=== PATIENT | female | born 1965 | race Two or more races ===

== ENCOUNTER 2017-12-20 14:47 | Inpatient (IN) | payer OTHER ==
[2017-12-20] MEDS ORDERED: SODIUM CHLORIDE 1,000 ML IV STA ×2 (16:08→18:08)
[2017-12-20] MEDS ORDERED: ACETAMINOPHEN 1000 MG/100 ML VIAL (NON FORMULARY) IVPB ONE (16:22)
--- NOTE | 2017-12-20 16:27 | PDOC ---
Attending Attestation - HPI HPI: 12/20/17 17:39 The patient is a 52 year old female with past medical history of anemia and asthma presents to the emergency department with flank pain. The patient reports an acute onset of L and R flank region pain that presented last night. The patient reports associated concern a headache, prior to going to bed reports taking tylenol, with relief reported and foul smell noticed while voiding. Denies fever, chills or a cough. Denies chest pain or shortness of breath. Denies dysuria, hematuria, frequency or urgency to urinate. Denies vertigo or dizziness. Denies numbness, tingling or loss of sensation. Denies diarrhea or constipation. Denies nausea or vomiting. Denies prior similar headache. Allergies: NKDA Social history: None reported Surgical history: None reported PCP: Shazia Frazier - Medical Decision Making 12/20/17 17:39 Documentation prepared by Sabine Carlisle, acting as medical technologist chief for Elsie Rea MD. <Sabine Carlisle - Last Filed: 12/20/17 17:38> - Resident Resident Name: Jesús Hopkins - ED Attending Attestation I have performed the following: I have examined & evaluated the patient, The case was reviewed & discussed with the resident, I agree w/resident's findings & plan, Exceptions are as noted - Physicial Exam PE: GENERAL: Awake, alert, and fully oriented, in no acute distress. Appears uncomfortable. HEAD: No signs of trauma EYES: PERRLA, EOMI, sclera anicteric, conjunctiva clear ENT: Auricles normal inspection, hearing grossly normal, nares patent, oropharynx clear without exudates. Dry mucosa NECK: Normal ROM, supple, no lymphadenopathy, JVD, or masses LUNGS: Breath sounds equal, clear to auscultation bilaterally. No wheezes, and no crackles HEART: Regular rate and rhythm, normal S1 and S2, no murmurs, rubs or gallops ABDOMEN: Soft, nontender, normoactive bowel sounds. No guarding, no rebound. No masses. +L CVAT. EXTREMITIES: Normal range of motion, no edema. No clubbing or cyanosis. No cords, erythema, or tenderness NEUROLOGICAL: Cranial nerves II through XII grossly intact. Normal speech, normal gait. Motor and sensation intact. SKIN: Warm, Dry, normal turgor, no rashes or lesions noted. - Medical Decision Making Pt with fever, L CVAT. Suspected pyelonephritis vs infected stone. Will obtain labs, UA, and CT. <Elsie Rea - Last Filed: 12/23/17 08:16>
[2017-12-20 16:49] LABS: URINE APPEARANCE SLCLOUDY; URINE BILIRUBIN NEGATIVE (<2.0 mg/dL); URINE COLOR YELLOW; URINE GLUCOSE (UA) NEGATIVE (NEGATIVE); URINE KETONE NEGATIVE (NEGATIVE); URINE NITRITE NEGATIVE (NEGATIVE); URINE PROTEIN NEGATIVE (NEGATIVE); URINE UROBILINOGEN 4.0 E.U/dl mg/dL (0.2-1.0)
[2017-12-20 16:50] LABS: URINE LEUK ESTERASE 2+ (NEGATIVE)
[2017-12-20 16:53] LABS: EPI CELLS RARE /HPF (FEW); URINE BACTERIA RARE /hpf (NONE SEEN); URINE MUCUS RARE
[2017-12-20 17:07] LABS: HEMATOCRIT 37.1 % (32.4-45.2); HEMOGLOBIN 12.5 GM/dL (10.7-15.3); MCH 29.7 pg (25.7-33.7); MCHC 33.7 g/dl (32.0-36.0); MEAN CELL VOLUME 88.2 fl (80-96); MEAN PLT VOLUME 8.4 fl (7.5-11.1); PLATELET COUNT 252 K/MM3 (134-434); RBC 4.21 M/mm3 (3.60-5.2); RDW 14.5 % (11.6-15.6); WHITE BLOOD COUNT 12.2 K/mm3 (4.0-10.0)
[2017-12-20] MEDS ORDERED: ACETAMINOPHEN INJECTION 100 ML IVPB ONE (17:09)
[2017-12-20 17:14] LABS: INR 1.3 (0.82-1.09); PROTHROMBIN TIME (PATIENT) 14.7 SEC (9.7-13.0)
[2017-12-20 17:25] LABS: ALBUMIN 3.9 g/dl (3.4-5.0); ALK PHOS 111 U/L (45-117); ANION GAP 9 (8-16); BILIRUBIN,TOTAL 0.6 mg/dL (0.2-1.0); BLOOD UREA NITROGEN 6 mg/dL (7-18); CALCIUM 8.5 mg/dL (8.5-10.1); CHLORIDE 101 mmol/L (98-107); CO2 28 mmol/L (21-32); CREATININE 0.7 mg/dL (0.55-1.02); GLUCOSE,RANDOM 85 mg/dL (74-106); POTASSIUM 3.2 mmol/L (3.5-5.1); SGOT/AST 19 U/L (15-37); SGPT/ALT 25 U/L (12-78); SODIUM 138 mmol/L (136-145); TOT PROT 8.2 g/dl (6.4-8.2)
--- NOTE | 2017-12-20 17:26 | PDOC ---
History of Present Illness - General Stated Complaint: HTN Time Seen by Provider: 12/20/17 15:40 History Source: Patient Exam Limitations: No Limitations - History of Present Illness Initial Comments: 12/20/17 16:31 Patient is a 52F with history of HTN here today complaining of left flank pain and headache that started last night. She is also complaining of associated foul smelling urine, fever, headache and bodyaches. She denies chest pain, shortness of breath, and leg swelling. She denies focal weakness, saddle anesthesia, IVDA. She describes a headache that started yesterday. Denies chills , leg swelling. Past History - Past Medical History Allergies/Adverse Reactions: Allergies Allergy/AdvReac Type Severity Reaction Status Date / Time No Known Drug Allergies Allergy Verified 11/26/15 06:57 Home Medications: Ambulatory Orders Aspirin [ASA -] 81 mg PO DAILY 11/22/15 Losartan Potassium 100 mg PO DAILY 11/22/15 Turpin-3 Fatty Acids [Turpin-3] 1,000 mg PO DAILY 12/21/17 Omeprazole 40 mg PO DAILY 12/21/17 Anemia: Yes Asthma: Yes Cardiac Disorders: Yes CVA: No COPD: No DVT: No Dementia: No Diabetes: No Dialysis: No GI Disorders: No Disorders: No HTN: No Hypercholesterolemia: No Kidney Stones: No Liver Disease: No Psychiatric Problems: No Seizures: No Thyroid Disease: No Lung CA: No - Surgical History Abdominal Surgery: No Appendectomy: No Cardiac Surgery: No Cholecystectomy: No Gastric Stapling: No GI Surgery: No Lung Surgery: No Neurologic Surgery: No - Immunization History Td Vaccination: Yes TDAP Vaccination: Yes Immunization Up to Date: Yes - Suicide/Smoking/Psychosocial Hx Smoking History: Never smoked Have you smoked in the past 12 months: No Number of Cigarettes Smoked Daily: 0 Information on smoking cessation initiated: No Hx Alcohol Use: No Drug/Substance Use Hx: No Substance Use Type: None Review of Systems - Review of Systems Comments:: 12/20/17 17:26 GENERAL/CONSTITUTIONAL: No fever or chills. No weakness. HEAD, EYES, EARS, NOSE AND THROAT: No change in vision. No sore throat. CARDIOVASCULAR: No chest pain or shortness of breath RESPIRATORY: No cough, wheezing, or hemoptysis. GASTROINTESTINAL: No nausea, vomiting, diarrhea or constipation. GENITOURINARY: No dysuria, frequency, +foul smell MUSCULOSKELETAL: No joint or muscle swelling or pain. No neck or back pain. SKIN: No rash NEUROLOGIC: No headache, vertigo, loss of consciousness, or change in strength/ sensation. ENDOCRINE: No increased thirst. No abnormal weight change HEMATOLOGIC/LYMPHATIC: No anemia, easy bleeding, or history of blood clots. ALLERGIC/IMMUNOLOGIC: No hives or skin allergy. *Physical Exam - Vital Signs Last Vital Signs Temp Pulse Resp BP Pulse Ox 98.4 F 113 H 20 153/90 95 12/20/17 15:10 12/20/17 15:10 12/20/17 15:10 12/20/17 15:10 12/20/17 15:10 - Physical Exam Comments: 12/20/17 17:26 GENERAL: Awake, alert, and fully oriented, in no acute distress HEAD: No signs of trauma, normocephalic, atraumatic EYES: PERRLA, EOMI, sclera anicteric, conjunctiva clear ENT: Auricles normal inspection, hearing grossly normal, nares patent, oropharynx clear without exudates. Moist mucosa NECK: Normal ROM, supple, no lymphadenopathy, JVD, or masses LUNGS: No distress, speaks full sentences, clear to auscultation bilaterally HEART: Regular rate and rhythm, normal S1 and S2, no murmurs, rubs or gallops, peripheral pulses normal and equal bilaterally. ABDOMEN: L sided CVA tenderness, otherwise non-tender. EXTREMITIES: Normal inspection, Normal range of motion, no edema. No clubbing or cyanosis. NEUROLOGICAL: Cranial nerves II through XII grossly intact. Normal speech, no focal sensorimotor deficits SKIN: Warm, Dry, normal turgor, no rashes or lesions noted. ED Treatment Course - LABORATORY CBC & Chemistry Diagram: 12/20/17 16:10 12/20/17 16:10 - RADIOLOGY Radiology Studies Ordered: Category Date Time Status SPIRAL- RENAL-STONE CT [CT] Stat CT Scan 12/20/17 16:13 Ordered CXRPORT [CHEST X-RAY PORTABLE*] [RAD] Stat Radiology 12/20/17 16:04 Ordered Medical Decision Making - Medical Decision Making 12/20/17 17:27 Patient is 52F with history of HTN here today with foul smelling urine, back pain. Vital signs notable for tachycardia and fever. Patient is septic, source is likely UTI. Will evaluate with septic workup and spiral CT. Will treat with fluids and tylenol. 12/20/17 17:28 Laboratory Tests 12/20/17 12/20/17 16:10 16:10 WBC 12.2 H Hgb 12.5 Plt Count 252 Ur Leukocyte Esterase 2+ H Urine WBC (Auto) 111 CBC normal. CMP reassuring. UA positive for UTI. Culture sent, will treat with ceftriaxone. *DC/Admit/Observation/Transfer Diagnosis at time of Disposition: Pyelonephritis - Discharge Dispostion Condition at time of disposition: Stable - Referrals - Patient Instructions - Post Discharge Activity
[2017-12-20] MEDS ORDERED: CEFTRIAXONE 1,000 MG in DEXTROSE 5%-WATER - 50 ML IVPB ONE (17:29)
[2017-12-20] MEDS ORDERED: CEFTRIAXONE 1 GM/50 ML BAG ONE (18:23)
[2017-12-20] MEDS ORDERED: IBUPROFEN 800 MG/8 ML IJ IVPB ONE ×2 (18:46→20:03)
--- NOTE | 2017-12-20 19:15 | PDOC ---
*Physical Exam - Vital Signs Last Vital Signs Temp Pulse Resp BP Pulse Ox 102.4 F H 107 H 22 145/79 98 12/20/17 17:05 12/20/17 17:05 12/20/17 17:05 12/20/17 17:05 12/20/17 17:05 ED Treatment Course - LABORATORY CBC & Chemistry Diagram: 12/20/17 16:10 12/20/17 16:10 - ADDITIONAL ORDERS Additional order review: Laboratory Results 12/20/17 12/20/17 12/20/17 16:10 16:10 16:10 PT with INR INR Sodium 138 Potassium 3.2 L Chloride 101 Carbon Dioxide 28 Anion Gap 9 BUN 6 L Creatinine 0.7 Creat Clearance w eGFR > 60 Random Glucose 85 Lactic Acid 1.3 Calcium 8.5 Total Bilirubin 0.6 AST 19 ALT 25 Alkaline Phosphatase 111 Total Protein 8.2 Albumin 3.9 Urine Color Yellow Urine Appearance Slcloudy Urine pH 7.0 Ur Specific [place] 1.011 Urine Protein Negative Urine Glucose (UA) Negative Urine Ketones Negative Urine Blood 2+ H Urine Nitrite Negative Urine Bilirubin Negative Urine Urobilinogen 4.0 e.u/dl H Ur Leukocyte Esterase 2+ H Urine WBC (Auto) 111 Urine RBC (Auto) 61 Ur Epithelial Cells Rare Urine Bacteria Rare Urine Mucus Rare 12/20/17 16:10 PT with INR 14.70 H INR 1.30 H Sodium Potassium Chloride Carbon Dioxide Anion Gap BUN Creatinine Creat Clearance w eGFR Random Glucose Lactic Acid Calcium Total Bilirubin AST ALT Alkaline Phosphatase Total Protein Albumin Urine Color Urine Appearance Urine pH Ur Specific [place] Urine Protein Urine Glucose (UA) Urine Ketones Urine Blood Urine Nitrite Urine Bilirubin Urine Urobilinogen Ur Leukocyte Esterase Urine WBC (Auto) Urine RBC (Auto) Ur Epithelial Cells Urine Bacteria Urine Mucus 12/20/17 16:10 RBC 4.21 MCV 88.2 MCHC 33.7 RDW 14.5 MPV 8.4 - Medications Given in the ED: ED Medications Discontinued Medications Generic Name Dose Route Start Last Admin Trade Name Freq PRN Reason Stop Dose Admin Acetaminophen 1,000 mg 12/20/17 16:22 12/20/17 16:25 Ofirmev Injection - IVPB 12/20/17 16:23 1,000 mg ONCE ONE Administration Sodium Chloride 1,000 mls @ 1,000 mls/hr 12/20/17 16:08 12/20/17 16:10 Normal Saline - IV 12/20/17 17:07 1,000 mls/hr ASDIR STA Administration Ceftriaxone Sodium 1,000 mg/ 50 mls @ 100 mls/hr 12/20/17 17:29 12/20/17 17: 30 Dextrose IVPB 12/20/17 17:58 100 mls/hr ONCE ONE Administration Sodium Chloride 1,000 mls @ 1,000 mls/hr 12/20/17 18:08 12/20/17 18:29 Normal Saline - IV 12/20/17 19:07 1,000 mls/hr ASDIR STA Administration Medical Decision Making - Medical Decision Making 12/20/17 19:[address] Hopkins. 12/20/17 19:16 Ms. Brown is a patient of Dr. Frazier's, noted to have pyelonephritis. Hospitalist paged for admission for IV ABX and observation. 12/20/17 19:36 Patient admitted for further care. *DC/Admit/Observation/Transfer Diagnosis at time of Disposition: Pyelonephritis - Discharge Dispostion Decision to Admit order: Yes - Referrals Referrals: Shazia Frazire [Primary Care Provider] - - Patient Instructions - Post Discharge Activity
--- NOTE | 2017-12-20 20:52 | HP ---
CHIEF COMPLAINT: back pain PCP: Dr. Fela Frazier HISTORY OF PRESENT ILLNESS: The patient is English speaking only. The following history was taken with the assistance of [employer] [place] [id number]. The patient is a 52 yo f w/ PMH HTN, Anemia who comes into the ED c/o a 1 day hx of left sided flank pain and headache since last night. The patient describes a dull, constant, 10/10 pain centered around the left side of her lower back without any radiation or modulating factors. The patient's headache was also dull, 10/10 in intensity and centered over the forehead without any radiation. Patient denies changes in vision, changes in mentation, weakness or numbness. The patient associated the above symptoms with foul smelling urine and increased urinary frequency as well as subjective fevers and sweats at home. ER course was notable for: (1) UA w/ 2+ blood, 2+ leuk esterase, 111 WBC (2) Potassium 3.2 WBC 12.3, LA 1.3 (3) CTAP showing b/l nephrolithiasis w/o hydronephrosis or obstruction. (4) BCX, UCX sent PAST MEDICAL HISTORY: Anemia HTN Right breast mass w/o cancer PAST SURGICAL HISTORY: Right breast surgery to "clean out the tissue" Umbilical hernia repain Cholecystectomy Social History: Smoking: never smoker Alcohol: denies Drugs: denies Family History: Aunt of breast cancer at 42 Mother with Alzheimer's and CAD Allergies No Known Drug Allergies Allergy (Verified 11/26/15 06:57) HOME MEDICATIONS: Home Medications Medication Instructions Recorded Albuterol 0.083% Nebulizer Pauline 1 neb NEB QID 11/22/15 [Ventolin 0.083%] Aspirin [ASA -] 81 mg PO DAILY 11/22/15 Ferrous Fumarate 18 mg PO DAILY 11/22/15 Losartan Potassium 25 mg PO DAILY 11/22/15 Paroxetine HCl 20 mg PO DAILY 11/22/15 Docusate Sodium [Colace -] 100 mg PO TID #90 capsule 11/26/15 Oxycodone HCl/Acetaminophen 1 - 2 tab PO Q6H PRN #20 tab MDD 6 11/26/15 [Percocet 5-325 mg Tablet] REVIEW OF SYSTEMS CONSTITUTIONAL: Absent: fever, diaphoresis, generalized weakness, malaise, loss of appetite, weight change HEENT: Absent: rhinorrhea, nasal congestion, throat pain, throat swelling, difficulty swallowing, mouth swelling, ear pain, eye pain, visual changes CARDIOVASCULAR: Absent: chest pain, syncope, palpitations, irregular heart rate, lightheadedness , peripheral edema RESPIRATORY: Absent: cough, shortness of breath, dyspnea with exertion, orthopnea, wheezing, stridor, hemoptysis GASTROINTESTINAL: Absent: abdominal pain, abdominal distension, nausea, vomiting, diarrhea, constipation, melena, hematochezia GENITOURINARY: Absent: dysuria, urgency, hesitancy, hematuria, genital pain MUSCULOSKELETAL: Absent: myalgia, arthralgia, joint swelling, neck pain SKIN: Absent: rash, itching, pallor HEMATOLOGIC/IMMUNOLOGIC: Absent: easy bleeding, easy bruising, lymphadenopathy, frequent infections ENDOCRINE: Absent: unexplained weight gain, unexplained weight loss, heat intolerance, cold intolerance NEUROLOGIC: Absent: headache, focal weakness or paresthesias, dizziness, unsteady gait, seizure, mental status changes, bladder or bowel incontinence PSYCHIATRIC: Absent: anxiety, depression, suicidal or homicidal ideation, hallucinations. PHYSICAL EXAMINATION Vital Signs - 24 hr 12/20/17 12/20/17 12/20/17 14:48 15:10 16:08 Temperature 98.3 F 98.4 F 103.1 F H Pulse Rate 118 H 113 H Pulse Rate [ 113 H Left Radial] Respiratory 20 20 22 Rate Blood Pressure 160/103 159/93 Blood Pressure 153/90 [Right Arm] O2 Sat by Pulse 95 95 97 Oximetry (%) 12/20/17 17:05 Temperature 102.4 F H Pulse Rate Pulse Rate [ 107 H Left Radial] Respiratory 22 Rate Blood Pressure Blood Pressure 145/79 [Right Arm] O2 Sat by Pulse 98 Oximetry (%) GENERAL: Awake, alert, and fully oriented, in no acute distress. HEAD: Normal with no signs of trauma. EYES: Pupils equal, round and reactive to light, extraocular movements intact, sclera anicteric, conjunctiva clear. No lid lag. EARS, NOSE, THROAT: oropharynx clear without exudates. Moist mucous membranes. NECK: Normal range of motion, supple without lymphadenopathy, JVD, or masses. LUNGS: Breath sounds equal, clear to auscultation bilaterally. No wheezes, and no crackles. No accessory muscle use. HEART: Regular rate and rhythm, normal S1 and S2 without murmur, rub or gallop. ABDOMEN: Soft, not distended, normoactive bowel sounds. Tenderness to palpation in the RLQ and in the suprapubic area. no guarding, no rebound, no masses. CVA tenderness present on the left. LOWER EXTREMITIES: 2+ pulses, warm, well-perfused. No calf tenderness. No peripheral edema. NEUROLOGICAL: Cranial nerves II-X intact. Normal speech. Normal gait. SKIN: Warm, dry, normal turgor, no rashes or lesions noted, normal capillary refill. Laboratory Results - last 24 hr 12/20/17 12/20/17 12/20/17 16:10 16:10 16:10 WBC 12.2 H RBC 4.21 Hgb 12.5 Hct 37.1 MCV 88.2 MCH 29.7 MCHC 33.7 RDW 14.5 Plt Count 252 MPV 8.4 PT with INR 14.70 H INR 1.30 H Sodium Potassium Chloride Carbon Dioxide Anion Gap BUN Creatinine Creat Clearance w eGFR Random Glucose Lactic Acid Calcium Total Bilirubin AST ALT Alkaline Phosphatase Total Protein Albumin Urine Color Yellow Urine Appearance Slcloudy Urine pH 7.0 Ur Specific [place] 1.011 Urine Protein Negative Urine Glucose (UA) Negative Urine Ketones Negative Urine Blood 2+ H Urine Nitrite Negative Urine Bilirubin Negative Urine Urobilinogen 4.0 e.u/dl H Ur Leukocyte Esterase 2+ H Urine WBC (Auto) 111 Urine RBC (Auto) 61 Ur Epithelial Cells Rare Urine Bacteria Rare Urine Mucus Rare 12/20/17 12/20/17 16:10 16:10 WBC RBC Hgb Hct MCV MCH MCHC RDW Plt Count MPV PT with INR INR Sodium 138 Potassium 3.2 L Chloride 101 Carbon Dioxide 28 Anion Gap 9 BUN 6 L Creatinine 0.7 Creat Clearance w eGFR > 60 Random Glucose 85 Lactic Acid 1.3 Calcium 8.5 Total Bilirubin 0.6 AST 19 ALT 25 Alkaline Phosphatase 111 Total Protein 8.2 Albumin 3.9 Urine Color Urine Appearance Urine pH Ur Specific [place] Urine Protein Urine Glucose (UA) Urine Ketones Urine Blood Urine Nitrite Urine Bilirubin Urine Urobilinogen Ur Leukocyte Esterase Urine WBC (Auto) Urine RBC (Auto) Ur Epithelial Cells Urine Bacteria Urine Mucus ASSESSMENT/PLAN: The patient is a 52 yo f w/ PMH HTN, Anemia who comes in c/o left sided flank pain as well as foul smelling urine. #Sepsis 2/2 acute pyelonephritis -Tmax 103.1 -HR 113 -Positive UA -s/p Rocephin 1g in ED -will continue w/ Rocephin 1g daily -f/u UCx, BCx -NS @ 100 -Tylenol 650mg PRN fever -Tylenol 650mg PRN pain #HTN -resume home medications -monitor #Hypokalemia -replete w/ 40 meq PO -repeat in am -check mag #Nephrolithiasis -not an active issue at this time -patient will need nephro f/u as outpatient for nephrolithiasis workup #FEN -NS @ 100 -replete lytes as above, monitor -Sodium controlled diet #Prophy -heparin SQ 5k units TID #Dispo -admit med surg -medications verified with patient Visit type - Emergency Visit Emergency Visit: Yes ED Registration Date: 12/20/17 Care time: The patient presented to the Emergency Department on the above date and was hospitalized for further evaluation of their emergent condition. - New Patient This patient is new to me today: Yes Date on this admission: 12/21/17 - Critical Care Critical Care patient: No Hospitalist Screening - Colonoscopy Questionnaire Colonoscopy Questionnaire: Colonoscopy Questionnaire - Patient: 50 - 75 years old and never had a screening colonoscopy: Unknown History of colon or rectal polyps, or CA: Unknown History of IBD, Crohn's disease or UC: Unknown History of abdominal radiation therapy as a child: Unknown - Relative: 1 with colon or rectal CA, or polyps at age 60 or younger: Unknown Colon or rectal CA diagnosed at age 45 or younger: Unknown Multiple relatives with colon or rectal CA: Unknown - Outcome: Screening Result: Negative Screen
[2017-12-20] MEDS ORDERED: ACETAMINOPHEN 325 MG TABLET (FP) ONE (22:07)
[2017-12-20] MEDS ORDERED: HEPARIN NA (PORCINE) 5,000 UNITS/ML 1ML VIAL ONE (22:07)
[2017-12-20] MEDS: ACETAMINOPHEN 325 MG TABLET (FP) PO PRN (22:20)
[2017-12-20] MEDS: HEPARIN NA (PORCINE) 5,000 UNITS/ML 1ML VIAL SQ SCH (22:20)
[2017-12-20] MEDS ORDERED: POTASSIUM CHLORIDE TABS 20 MEQ TABLET.ER (FP) PO ONE ×2 (22:26→23:39)
[2017-12-20] MEDS: SODIUM CHLORIDE 1,000 ML IV SCH (23:00)
--- NOTE | 2017-12-21 01:15 | PN ---
Teaching Attending Note Name of Resident: Channing Goode ATTENDING PHYSICIAN STATEMENT I saw and evaluated the patient. CHart, data, imaging reviewed. I reviewed the resident's note and discussed the case with the resident. I agree with the resident's findings and plan as documented. SUBJECTIVE: 52 yo f w/ PMH HTN, Anemia who comes into the ED c/o a 1 day hx of left sided flank pain and headache. Left flank pain was dull, nonradiating, and started spontaneously. Pyuria seen on UA. Improved after IV tylenol, IVF, and ceftriaxone. Headache has also improved Patient denied any vomiting, or diarrhea. Some subjective fever but no chills. No history of UTIs She was found OBJECTIVE: Last Vital Signs Temp Pulse Resp BP Pulse Ox 102.4 F H 107 H 22 145/79 98 12/20/17 17:05 12/20/17 17:05 12/20/17 17:05 12/20/17 17:05 12/20/17 17:05 General- nad, nontoxic appearing heent- moist oral mucosa neck -supple cv-s1+s2+ rrr chest - cta b/l abdomen- soft, nt, left left sided cva tenderness ext- no pedal edema Abnormal Lab Results 12/20/17 12/20/17 12/20/17 16:10 16:10 16:10 WBC 12.2 H PT with INR 14.70 H INR 1.30 H Potassium BUN Urine Blood 2+ H Urine Urobilinogen 4.0 e.u/dl H Ur Leukocyte Esterase 2+ H 12/20/17 16:10 WBC PT with INR INR Potassium 3.2 L BUN 6 L Urine Blood Urine Urobilinogen Ur Leukocyte Esterase CT of abdomen/pelvis reviewed, b/l nonobstructing calculi seen, no hydronephrosis ASSESSMENT AND PLAN: #52yo woman with sepsis secondary to left sided pyelonephritis with clinical improvment after IVF, and ceftriaxone. No evidence of obstructing nephrolithiasis on CT of abdomen/pelvis. -admit to med/surg. -f/u blood cx and urine cx -IVF hydration -tylenol prn if fever/pain -ceftriaxone 1g IV q24hrs -renal clinic as an outpatient for urine analysis for stone prevention -zofran IV prn if nausea or vomiting -see resident note for details #DVT ppx- heparin sc
[2017-12-21 03:52] VITALS: BMI 32.9
[2017-12-21] MEDS: SODIUM CHLORIDE 1,000 ML IV SCH ×2 (05:56→14:34)
[2017-12-21] MEDS: HEPARIN NA (PORCINE) 5,000 UNITS/ML 1ML VIAL SQ SCH ×3 (05:57→21:04)
[2017-12-21 07:53] LABS: HEMATOCRIT 35.7 % (32.4-45.2); MCH 29.8 pg (25.7-33.7); MCHC 33.5 g/dl (32.0-36.0); MEAN CELL VOLUME 89.1 fl (80-96); MEAN PLT VOLUME 8.5 fl (7.5-11.1); PLATELET COUNT 204 K/MM3 (134-434); RBC 4.01 M/mm3 (3.60-5.2); RDW 14.3 % (11.6-15.6); WHITE BLOOD COUNT 8.5 K/mm3 (4.0-10.0)
[2017-12-21 08:18] LABS: INR 1.36 (0.82-1.09); PROTHROMBIN TIME (PATIENT) 15.4 SEC (9.7-13.0)
[2017-12-21 08:21] LABS: ACTIVATED PTT 29.3 SECONDS (25.2-36.5)
[2017-12-21 08:34] LABS: ALBUMIN 3.3 g/dl (3.4-5.0); ALK PHOS 96 U/L (45-117); ANION GAP 8 (8-16); BILIRUBIN,TOTAL 0.6 mg/dL (0.2-1.0); BLOOD UREA NITROGEN 6 mg/dL (7-18); CALCIUM 8.1 mg/dL (8.5-10.1); CHLORIDE 108 mmol/L (98-107); CO2 26 mmol/L (21-32); CREATININE 0.5 mg/dL (0.55-1.02); GLUCOSE,RANDOM 79 mg/dL (74-106); MAGNESIUM 1.8 mg/dL (1.8-2.4); PHOSPHOROUS 2.3 mg/dL (2.5-4.9); POTASSIUM 3.2 mmol/L (3.5-5.1); SGOT/AST 22 U/L (15-37); SGPT/ALT 27 U/L (12-78); SODIUM 142 mmol/L (136-145); TOT PROT 7.1 g/dl (6.4-8.2)
[2017-12-21] MEDS ORDERED: NAPH,MB-DB/K PH,MBDB POWDER PACKET PO ONE ×2 (09:06→16:55)
[2017-12-21] MEDS ORDERED: POTASSIUM CHLORIDE TABS 10 MEQ TABLET.ER (FP) PO ONE (09:06)
[2017-12-21] MEDS ORDERED: cefTRIAXone SODIUM 1 GM VIAL ONE (09:38)
[2017-12-21] MEDS ORDERED: DEXTROSE 5%-WATER - 50 ML IVPB ONE (09:38)
[2017-12-21] MEDS: PANTOPRAZOLE 40 MG TABLET (FP) PO SCH (09:48)
[2017-12-21] MEDS: CEFTRIAXONE 1 GM in DEXTROSE 5%-WATER - 50 ML IVPB SCH (09:48)
[2017-12-21] MEDS: ACETAMINOPHEN 325 MG TABLET (FP) PO PRN (09:48)
[2017-12-21] MEDS: LOSARTAN POTASSIUM 50 MG TABLET (FP) PO SCH (09:48)
--- NOTE | 2017-12-21 16:22 | PN ---
Teaching Attending Note Name of Resident: Nura Cai ATTENDING PHYSICIAN STATEMENT I saw and evaluated the patient. I reviewed the resident's note and discussed the case with the resident. I agree with the resident's findings and plan as documented. SUBJECTIVE:c/o chills. states flank pain has improved. denies Cp, SOB, N/V/C/D. never had similiar episodes in the past. never treated for frequent UTI or nephrolithasis. no hx of nephrolithasis in the family OBJECTIVE: Last Vital Signs Temp Pulse Resp BP Pulse Ox 98.2 F 106 H 20 121/88 97 12/21/17 15:02 12/21/17 15:02 12/21/17 15:02 12/21/17 15:02 12/21/17 09:00 General diaphoretic CV S1 s2 RRR no murmur/rub/gallop Lungs CTA B/L no wheezing/rales/rhonchi Abdomen soft NT/ND +L CVA tenderness ASSESSMENT AND PLAN: 52yo F wtih PMH HTN presented to the ER with L flank pain and fevers 1. Sepsis due to pyelonephritis- Tm 103.1. currently 101. will cont with ceftriaxone day 2. cont IVF. pain control. f/u cx 2. Nephrolithasis- non-obstructing stones. increase IVF to 125cc/H. strain all urine. can f/u with urology as outpatient if stones do not pass on their own 3. hypokalemia- Kcl po 4. Hypophosphatemia- neutraphos 5. HTN- controlled 6. DVT ppx- hep sq
--- NOTE | 2017-12-21 16:54 | PN ---
Physical Exam: SUBJECTIVE: Patient seen and examined at bedside. Pt complains of L flank pain. No other complaints. OBJECTIVE: Vital Signs Period Temp Pulse Resp BP Sys/[place] Pulse Ox Last 24 Hr 97.8 F-102.4 F 75-107 16-22 121-152/72-93 94-98 Gen: Sitting in bed, nad HEENT: NCAT, PERRL, EOMI Neck: supple no jvd no bruits Cardio: RRR, norm s1s2, no m/r/g Pulm: cta b/l Abd: soft, mild ttp lower abdomen, L CVA tenderness to fist percussion Neuro: cn2-12 intact. sensation intact throughout. Strength 5/5 throughout. Reflexes 2+ Laboratory Results - last 24 hr 12/20/17 12/20/17 12/20/17 16:10 16:10 16:10 WBC 12.2 H RBC 4.21 Hgb 12.5 Hct 37.1 MCV 88.2 MCH 29.7 MCHC 33.7 RDW 14.5 Plt Count 252 MPV 8.4 PT with INR 14.70 H INR 1.30 H PTT (Actin FS) Sodium Potassium Chloride Carbon Dioxide Anion Gap BUN Creatinine Creat Clearance w eGFR Random Glucose Lactic Acid Calcium Phosphorus Magnesium Total Bilirubin AST ALT Alkaline Phosphatase Total Protein Albumin Urine Color Yellow Urine Appearance Slcloudy Urine pH 7.0 Ur Specific [place] 1.011 Urine Protein Negative Urine Glucose (UA) Negative Urine Ketones Negative Urine Blood 2+ H Urine Nitrite Negative Urine Bilirubin Negative Urine Urobilinogen 4.0 e.u/dl H Ur Leukocyte Esterase 2+ H Urine WBC (Auto) 111 Urine RBC (Auto) 61 Ur Epithelial Cells Rare Urine Bacteria Rare Urine Mucus Rare 12/20/17 12/20/17 12/21/17 16:10 16:10 06:50 WBC 8.5 RBC 4.01 Hgb 12.0 Hct 35.7 MCV 89.1 MCH 29.8 MCHC 33.5 RDW 14.3 Plt Count 204 MPV 8.5 PT with INR INR PTT (Actin FS) Sodium 138 Potassium 3.2 L Chloride 101 Carbon Dioxide 28 Anion Gap 9 BUN 6 L Creatinine 0.7 Creat Clearance w eGFR > 60 Random Glucose 85 Lactic Acid 1.3 Calcium 8.5 Phosphorus Magnesium Total Bilirubin 0.6 AST 19 ALT 25 Alkaline Phosphatase 111 Total Protein 8.2 Albumin 3.9 Urine Color Urine Appearance Urine pH Ur Specific [place] Urine Protein Urine Glucose (UA) Urine Ketones Urine Blood Urine Nitrite Urine Bilirubin Urine Urobilinogen Ur Leukocyte Esterase Urine WBC (Auto) Urine RBC (Auto) Ur Epithelial Cells Urine Bacteria Urine Mucus 12/21/17 12/21/17 06:50 06:50 WBC RBC Hgb Hct MCV MCH MCHC RDW Plt Count MPV PT with INR 15.40 H INR 1.36 H PTT (Actin FS) 29.3 Sodium 142 Potassium 3.2 L Chloride 108 H Carbon Dioxide 26 Anion Gap 8 BUN 6 L Creatinine 0.5 L Creat Clearance w eGFR > 60 Random Glucose 79 Lactic Acid Calcium 8.1 L Phosphorus 2.3 L Magnesium 1.8 Total Bilirubin 0.6 AST 22 ALT 27 Alkaline Phosphatase 96 D Total Protein 7.1 Albumin 3.3 L Urine Color Urine Appearance Urine pH Ur Specific [place] Urine Protein Urine Glucose (UA) Urine Ketones Urine Blood Urine Nitrite Urine Bilirubin Urine Urobilinogen Ur Leukocyte Esterase Urine WBC (Auto) Urine RBC (Auto) Ur Epithelial Cells Urine Bacteria Urine Mucus Active Medications Generic Name Dose Route Start Last Admin Trade Name Freq PRN Reason Stop Dose Admin Acetaminophen 650 mg 12/20/17 20:48 12/21/17 09:48 Tylenol - PO 650 mg Q6H PRN Administration FEVER Heparin Sodium (Porcine) 5,000 unit 12/20/17 22:00 12/21/17 14:34 Heparin - SQ 5,000 unit TID KRISTIN Administration Ceftriaxone Sodium 1 gm/ 50 mls @ 100 mls/hr 12/21/17 10:00 12/21/17 09:48 Dextrose IVPB 100 mls/hr DAILY KRISTIN Administration Protocol Sodium Chloride 1,000 mls @ 125 mls/hr 12/21/17 14:15 12/21/17 14:34 Normal Saline - IV 125 mls/hr ASDIR KRISTIN Administration Losartan Potassium 100 mg 12/21/17 10:00 12/21/17 09:48 Cozaar - PO 100 mg DAILY KRISTIN Administration Pantoprazole Sodium 40 mg 12/21/17 10:00 12/21/17 09:48 Protonix - PO 40 mg DAILY KRISTIN Administration ASSESSMENT/PLAN: Pt is a 52 y/o F with PMH HTN, Anemia who presented to ED with L flank pain and foul smelling urine. Pt was admitted for pyelonephritis. #Sepsis 2/2 acute pyelonephritis -febrile and tachycardic in ED -UA pos -got Rocephin in ED -Rocephin -f/u UCx, BCx -Tylenol -NS #Nephrolithiasis -Nonobstructive -Stones in renal pelvis. none noted in ureters -NS -strain urine #Fatty liver -incidental finding on CTAP -Not an active issue -liver enzymes unremarkable #FEN -NS -hypoK. hypoP. Repleting -Sodium controlled diet #Ppx -Hep SubQ #Dispo -admit med surg -medications verified with patient by admitting team Visit type - Emergency Visit Emergency Visit: No - New Patient This patient is new to me today: Yes Date on this admission: 12/21/17 - Critical Care Critical Care patient: No - Discharge Referral Referred to [facility] Med P.C.: No
[2017-12-21] MEDS ORDERED: POTASSIUM CHLORIDE TABS 20 MEQ TABLET.ER (FP) PO ONE (16:55)
[2017-12-22] MEDS: HEPARIN NA (PORCINE) 5,000 UNITS/ML 1ML VIAL SQ SCH ×3 (06:45→21:19)
[2017-12-22 07:44] LABS: BASO % 0.3 % (0-2.0); EOS % 0.5 % (0-4.5); HEMOGLOBIN 11.5 GM/dL (10.7-15.3); LYMPH % 30.5 % (8-40); MCH 29.8 pg (25.7-33.7); MCHC 33.7 g/dl (32.0-36.0); MEAN CELL VOLUME 88.3 fl (80-96); MEAN PLT VOLUME 8.3 fl (7.5-11.1); MONO % 13.1 % (3.8-10.2); NEUT % 55.6 % (42.8-82.8); PLATELET COUNT 223 K/MM3 (134-434); RBC 3.85 M/mm3 (3.60-5.2); WHITE BLOOD COUNT 7.7 K/mm3 (4.0-10.0)
[2017-12-22 08:07] LABS: CHLORIDE 102 mmol/L (98-107); SODIUM 138 mmol/L (136-145)
[2017-12-22 08:34] LABS: ALBUMIN 3.2 g/dl (3.4-5.0); ALK PHOS 97 U/L (45-117); ANION GAP 11 (8-16); BILIRUBIN,TOTAL 0.3 mg/dL (0.2-1.0); BLOOD UREA NITROGEN 6 mg/dL (7-18); CALCIUM 8.7 mg/dL (8.5-10.1); CO2 25 mmol/L (21-32); CREATININE 0.5 mg/dL (0.55-1.02); GLUCOSE,RANDOM 87 mg/dL (74-106); MAGNESIUM 1.9 mg/dL (1.8-2.4); PHOSPHOROUS 3.3 mg/dL (2.5-4.9); SGOT/AST 22 U/L (15-37); SGPT/ALT 30 U/L (12-78); TOT PROT 7.3 g/dl (6.4-8.2)
[2017-12-22] MEDS ORDERED: cefTRIAXone SODIUM 1 GM VIAL ONE (09:19)
[2017-12-22] MEDS ORDERED: DEXTROSE 5%-WATER - 50 ML IVPB ONE (09:19)
[2017-12-22 09:36] LABS: POTASSIUM 2.9 mmol/L (3.5-5.1)
[2017-12-22] MEDS: CEFTRIAXONE 1 GM in DEXTROSE 5%-WATER - 50 ML IVPB SCH (09:51)
[2017-12-22] MEDS: LOSARTAN POTASSIUM 50 MG TABLET (FP) PO SCH (09:51)
[2017-12-22] MEDS: PANTOPRAZOLE 40 MG TABLET (FP) PO SCH (09:51)
[2017-12-22] MEDS: SODIUM CHLORIDE 1,000 ML IV SCH (09:52)
[2017-12-22] MEDS ORDERED: POTASSIUM CHLORIDE TABS 20 MEQ TABLET.ER (FP) PO ONE ×3 (10:11→13:00)
--- NOTE | 2017-12-22 13:04 | EKG ---
Test Reason : Blood Pressure : / mmHG Vent. Rate : 106 BPM Atrial Rate : 106 BPM P-R Int : 150 ms QRS Dur : 086 ms QT Int : 330 ms P-R-T Axes : 025 025 054 degrees QTc Int : 438 ms SINUS TACHYCARDIA CANNOT RULE OUT ANTERIOR INFARCT (CITED ON OR BEFORE 20-DEC-2017) ABNORMAL ECG WHEN COMPARED WITH ECG OF 20-DEC-2017 15:40, NO SIGNIFICANT CHANGE WAS FOUND Confirmed by MUNA SUN MD ([id number]) on 12/22/2017 1:04:31 PM Referred By: Confirmed By:MUNA SUN MD
--- NOTE | 2017-12-22 15:55 | PN ---
Teaching Attending Note Name of Resident: Nura Cai ATTENDING PHYSICIAN STATEMENT I saw and evaluated the patient. I reviewed the resident's note and discussed the case with the resident. I agree with the resident's findings and plan as documented. SUBJECTIVE:states she feels warm and flushed but improves since yesterday. denies CP, SOB, rigors, chills, N/V/C/D OBJECTIVE: Last Vital Signs Temp Pulse Resp BP Pulse Ox 97.8 F 84 20 135/91 95 12/22/17 14:00 12/22/17 14:00 12/22/17 14:00 12/22/17 14:00 12/22/17 09:00 General NAD CV S1 s2 RRR no murmur/rub/gallop Lungs CTA B/L no wheezing/rales/rhonchi Abdomen soft NT/ND no CVA tenderness ASSESSMENT AND PLAN: 52yo F wtih PMH HTN presented to the ER with L flank pain and fevers 1. Sepsis due to pyelonephritis- Tm 101.5. clinically improved. awaiting Ucx. on ceftriaxone day 2. pain control. f/u cx 2. Nephrolithasis- non-obstructing stones. strain all urine. can f/u with urology as outpatient if stones do not pass on their own 3. hypokalemia- Kcl po, repeat levels 4. Hypophosphatemia- resolved 5. HTN- controlled 6. DVT ppx- hep sq 7. d/c planning pending Ucx and afebrile
--- NOTE | 2017-12-22 16:00 | PN ---
Physical Exam: SUBJECTIVE: Patient seen and examined at bedside. OBJECTIVE: Vital Signs Period Temp Pulse Resp BP Sys/[place] Pulse Ox Last 24 Hr 97.8 F-99.1 F 79-107 19-20 122-152/74-93 95-99 Gen: Sitting in bed, nad HEENT: NCAT, EOMI Neck: supple no jvd no bruits Cardio: RRR, norm s1s2, no m/r/g Pulm: cta b/l Abd: soft, mild ttp lower abdomen, No CVA tenderness Laboratory Results - last 24 hr 12/22/17 12/22/17 07:00 07:00 WBC 7.7 RBC 3.85 Hgb 11.5 Hct 34.0 MCV 88.3 MCH 29.8 MCHC 33.7 RDW 14.0 Plt Count 223 MPV 8.3 Absolute Neuts (auto) 4.2 Neutrophils % 55.6 Lymphocytes % 30.5 Monocytes % 13.1 H Eosinophils % 0.5 Basophils % 0.3 Nucleated RBC % 0 Sodium 138 Potassium 2.9 L* Chloride 102 Carbon Dioxide 25 Anion Gap 11 BUN 6 L Creatinine 0.5 L Creat Clearance w eGFR > 60 Random Glucose 87 Calcium 8.7 Phosphorus 3.3 Magnesium 1.9 Total Bilirubin 0.3 AST 22 ALT 30 Alkaline Phosphatase 97 Total Protein 7.3 Albumin 3.2 L Active Medications Generic Name Dose Route Start Last Admin Trade Name Freq PRN Reason Stop Dose Admin Acetaminophen 650 mg 12/20/17 20:48 12/21/17 09:48 Tylenol - PO 650 mg Q6H PRN Administration FEVER Heparin Sodium (Porcine) 5,000 unit 12/20/17 22:00 12/22/17 13:37 Heparin - SQ 5,000 unit TID KRISTIN Administration Ceftriaxone Sodium 1 gm/ 50 mls @ 100 mls/hr 12/21/17 10:00 12/22/17 09:51 Dextrose IVPB 100 mls/hr DAILY KRISTIN Administration Protocol Losartan Potassium 100 mg 12/21/17 10:00 12/22/17 09:51 Cozaar - PO 100 mg DAILY KRISTIN Administration Pantoprazole Sodium 40 mg 12/21/17 10:00 12/22/17 09:51 Protonix - PO 40 mg DAILY KRISTIN Administration ASSESSMENT/PLAN: Pt is a 52 y/o F with PMH HTN, Anemia who presented to ED with L flank pain and foul smelling urine. Pt was admitted for pyelonephritis. #Sepsis 2/2 acute pyelonephritis -febrile and tachycardic in ED -UA pos -got Rocephin in ED -Rocephin -UCx, BCx pending -Tylenol -NS #Nephrolithiasis -Nonobstructive -Stones in renal pelvis. none noted in ureters -NS -strain urine. No stones noted so far #Fatty liver -incidental finding on CTAP -Not an active issue. F/u out pt -liver enzymes unremarkable #FEN -NS -hypoK. hypoP. Repleting -Sodium controlled diet #Ppx -Hep SubQ #Dispo -admit med surg -medications verified with patient by admitting team Visit type - Emergency Visit Emergency Visit: No - New Patient This patient is new to me today: No - Critical Care Critical Care patient: No - Discharge Referral Referred to [facility] Med P.C.: No
[2017-12-22 19:36] LABS: ANION GAP 7 (8-16); BLOOD UREA NITROGEN 6 mg/dL (7-18); CALCIUM 8.5 mg/dL (8.5-10.1); CHLORIDE 107 mmol/L (98-107); CO2 25 mmol/L (21-32); CREATININE 0.6 mg/dL (0.55-1.02); GLUCOSE,RANDOM 137 mg/dL (74-106); POTASSIUM 3.9 mmol/L (3.5-5.1); SODIUM 139 mmol/L (136-145)
[2017-12-22] MEDS: ACETAMINOPHEN 325 MG TABLET (FP) PO PRN (22:38)
[2017-12-23] MEDS: HEPARIN NA (PORCINE) 5,000 UNITS/ML 1ML VIAL SQ SCH ×2 (06:11→13:45)
[2017-12-23] MEDS ORDERED: DEXTROSE 5%-WATER - 50 ML IVPB ONE (09:59)
[2017-12-23] MEDS ORDERED: cefTRIAXone SODIUM 1 GM VIAL ONE (09:59)
[2017-12-23] MEDS: LOSARTAN POTASSIUM 50 MG TABLET (FP) PO SCH (10:02)
[2017-12-23] MEDS: PANTOPRAZOLE 40 MG TABLET (FP) PO SCH (10:02)
[2017-12-23] MEDS: CEFTRIAXONE 1 GM in DEXTROSE 5%-WATER - 50 ML IVPB SCH ×2 (10:02→11:37)
[2017-12-23] MEDS ORDERED: CEPHALEXIN MONOHYDRATE 500 MG CAPSULE (UD) PO ONE (11:37)
--- NOTE | 2017-12-23 12:11 | PN ---
Teaching Attending Note Name of Resident: Nura Cai ATTENDING PHYSICIAN STATEMENT I saw and evaluated the patient. I reviewed the resident's note and discussed the case with the resident. I agree with the resident's findings and plan as documented. SUBJECTIVE:asymptomatic. no more fevers or chills or abdominal pain. eating well. normal BM OBJECTIVE: Last Vital Signs Temp Pulse Resp BP Pulse Ox 97.5 F L 92 H 20 127/81 95 12/23/17 06:00 12/23/17 06:00 12/23/17 06:00 12/23/17 06:00 12/22/17 09:00 General NAD CV S1 s2 RRR no murmur/rub/gallop Lungs CTA B/L no wheezing/rales/rhonchi Abdomen soft NT/ND no CVA tenderness ASSESSMENT AND PLAN: 52yo F wtih PMH HTN presented to the ER with L flank pain and fevers 1. Sepsis due to pyelonephritis- afebrile.. clinically improved. will d/c on levaquin based on sensitivities to complete 14 day course 2. Nephrolithasis- non-obstructing stones. strain all urine. can f/u with urology as outpatient if stones do not pass on their own 3. hypokalemia- resolved 4. Hypophosphatemia- resolved 5. HTN- controlled 6. DVT ppx- hep sq 7. d/c home. f/u with PMD and urology as outpatient
[2017-12-23 14:24] VITALS: BP 125/69; PULSE 86; TEMP 98.2
== END 2017-12-23 16:35 | disposition home or self-care (01) | DRG 720 ==
LOC: JER 14:47 → JERBED 19:43 → J8W 12-21 02:15
PROVIDERS: ADMIT Internal Medicine; ATTEND Internal Medicine
DX: A41.9 Sepsis, unspecified organism (principal); K76.0 Fatty (change of) liver, not elsewhere classified; E83.39 Other disorders of phosphorus metabolism; N20.0 Calculus of kidney; N10 Acute pyelonephritis; E87.6 Hypokalemia; I10 Essential (primary) hypertension
CPT/HCPCS: 36415; 71045-TC-FY; 74176; 80048; 80053; 81003; 81015; 83605; 83735; 84100; 85025; 85027; 85610; 85730; 87040; 87086; 87186; 93005; 93010; 99282-25; J0131; J1644; J7030

== ENCOUNTER 2023-10-29 06:21 | Day surgery (SDC) | payer OTHER ==
[2023-10-26 11:12] VITALS: BMI 33.2
[2023-10-29] MEDS ORDERED: BUPIVACAINE HCL/EPINEPHRINE/PF 30 ML VIAL IJ ONE (07:05)
[2023-10-29] MEDS ORDERED: SUCCINYLCHOLINE CHLORIDE 200 MG/10 ML SYRINGE ONE (07:15)
[2023-10-29] MEDS ORDERED: PROPOFOL 20 ML ONE (07:15)
[2023-10-29] MEDS ORDERED: MIDAZOLAM HCL 2 MG/2 ML SINGLE DOSE VIAL ONE ×2 (07:17→07:22)
[2023-10-29] MEDS ORDERED: ROPIVACAINE HCL 0.5% 30ML VIAL ONE (07:22)
[2023-10-29] MEDS ORDERED: DEXAMETHASONE SOD PHOSPHATE 10 MG/1 ML VIAL ONE (07:22)
[2023-10-29] MEDS ORDERED: ALBUTEROL SO4 HFA INHALER IH ONE (07:23)
[2023-10-29] MEDS ORDERED: oxyCODONE HCL 5 MG TABLET PO PRN ×2 (09:22)
[2023-10-29 10:20] VITALS: TEMP 97.4
[2023-10-29] MEDS: oxyCODONE HCL 5 MG TABLET ONE (10:25)
[2023-10-29 11:27] VITALS: BP 121/71; PULSE 68; RESP 18
== END 2023-10-29 11:50 | disposition home or self-care (01) ==
LOC: FASU 06:21
PROVIDERS: ATTEND Orthopaedic Surgery
PROC: 0RBK4ZZ Excision of Left Shoulder Joint, Percutaneous Endoscopic Approach (ICD-10-PCS; principal; 2023-10-29 08:03)
PROC: 0LS44ZZ Reposition Left Upper Arm Tendon, Percutaneous Endoscopic Approach (ICD-10-PCS; 2023-10-29 08:03)
PROC: 0RNK4ZZ Release Left Shoulder Joint, Percutaneous Endoscopic Approach (ICD-10-PCS; 2023-10-29 08:03)
DX: S46.012D Strain of muscle(s) and tendon(s) of the rotator cuff of left shoulder, subsequent encounter (principal); M75.22 Bicipital tendinitis, left shoulder; M75.52 Bursitis of left shoulder; M65.822 Other synovitis and tenosynovitis, left upper arm; S43.432D Superior glenoid labrum lesion of left shoulder, subsequent encounter; M75.02 Adhesive capsulitis of left shoulder
CPT/HCPCS: 88304-TC; 94760; C1713; J1100

== ENCOUNTER 2024-02-21 04:33 | Day surgery (SDC) | payer OTHER ==
[2024-02-18 16:30] VITALS: BMI 34.0
[2024-02-21] MEDS ORDERED: DEXAMETHASONE SOD PHOSPHATE 10 MG/1 ML VIAL ONE (07:21)
[2024-02-21] MEDS ORDERED: LIDOCAINE HCL/PF 1% SDV 5ML VIAL ONE (07:21)
[2024-02-21 09:24] VITALS: RESP 20
[2024-02-21] MEDS ORDERED: MIDAZOLAM HCL 2 MG/2 ML SINGLE DOSE VIAL ONE (10:51)
[2024-02-21] MEDS: LIDOCAINE 1% P/F 10 MG/ML VIAL PNB ONE (10:57)
[2024-02-21] MEDS: IOHEXOL 180 MG/1 ML ML IJ ONE (10:57)
[2024-02-21] MEDS: DEXAMETHASONE SOD PHOSPHATE 10 MG/1 ML VIAL IVPUSH ONE (10:57)
[2024-02-21] MEDS: BUPIVACAINE HCL/PF 0.25% (2.5MG/ML) 10 ML VIAL IJ ONE (10:57)
[2024-02-21 12:32] VITALS: BP 128/88; PULSE 68; TEMP 97.8
== END 2024-02-21 12:30 | disposition home or self-care (01) ==
LOC: JASU-SURG 04:33
PROVIDERS: ATTEND Physical Medicine & Rehabilitation
PROC: 3E0R3BZ Introduction of Anesthetic Agent into Spinal Canal, Percutaneous Approach (ICD-10-PCS; 2024-02-21)
PROC: 3E0R33Z Introduction of Anti-inflammatory into Spinal Canal, Percutaneous Approach (ICD-10-PCS; principal; 2024-02-21 11:30)
DX: M54.16 Radiculopathy, lumbar region (principal); M54.50 Low back pain, unspecified
CPT/HCPCS: 76000-TC-FY; J1100